=== PATIENT | female | born 1945 | race Caucasian/White ===

== ENCOUNTER 2024-12-12 06:09 | Day surgery (SDC) | payer MEDICARE, OTHER, SELFPAY ==
[2024-12-12] VITALS (7 sets, daily range): BP systolic 130–153; BP diastolic 67–86; BMI 26.5
[2024-12-12 14:12] LABS: Glucose - Point of Care 124 mg/dl (70-99)
[2024-12-12 17:43] LABS: Glucose - Point of Care 112 mg/dl (70-99)
[2024-12-12] MEDS: SUBLIMAZE 50 MCG IV (18:10)
== END 2024-12-12 19:03 | disposition home or self-care (01) ==
LOC: SDS 06:09
PROVIDERS: ATTENDING PHYSICIAN Internal Medicine Gastroenterology
DX: K22.2 Esophageal obstruction (principal); C15.9 Malignant neoplasm of esophagus, unspecified; D49.0 Neoplasm of unspecified behavior of digestive system
CPT/HCPCS: 43266; 76000; 82962; C1874

== ENCOUNTER 2024-12-18 08:02 | Outpatient (REF) | payer MEDICARE, OTHER, SELFPAY ==
[2024-12-18] VITALS (9 sets, daily range): BP systolic 87–148; BP diastolic 67–73
[2024-12-18 08:42] LABS: % Basophils 0.3 % (0-2); % Eosinophils 1.2 % (0-6); % Immature Granulocytes 0.2 % (0-0.5); % Lymphocytes 10.8 % (20.5-51.1); % Monocytes 9.7 % (1.7-9.3); % Neutrophils 77.8 % (42.2-75.2); Absolute Eosinophils 0.1 10^3/uL (0-0.7); Absolute Lymphocytes 1.1 10^3/uL (1.2-3.4); Absolute Neutrophils 8.1 10^3/uL (1.4-6.5); Hematocrit 43.6 % (37.0-47.0); Hemoglobin 15.8 g/dL (12.0-16.0); Mean Corp Hgb Conc. 36.2 g/dL (33.0-37.0); Mean Corpuscular Hgb 29.6 pg (27.0-31.0); Mean Corpuscular Volume 81.8 fL (81.0-99.0); Mean Platelet Volume 10.5 fL (7.4-10.4); Nucleated Red Blood Cells % 0 %; Platelet Count 293 10^3/uL (130-400); Red Blood Cell Count 5.33 10^6/uL (4.20-5.40); Red Cell Dist. Width 13.2 % (11.5-14.5); White Blood Cell Count 10.5 10^3/uL (4.8-10.8)
[2024-12-18 08:56] LABS: ALT (SGPT) 27 U/L (0-35); AST (SGOT) 21 U/L (14-36); Albumin 4.6 g/dl (3.5-5.0); Alkaline Phosphatase 83 U/L (38-126); Blood Urea Nitrogen 12 mg/dl (7-17); Calcium 10.4 mg/dl (8.4-10.2); Carbon Dioxide 25 mmol/L (22-30); Chloride 100 mmol/L (98-107); Glucose 159 mg/dl (70-99); Potassium 3.4 mmol/L (3.5-5.1); Sodium 137 mmol/L (135-145); Total Bilirubin 0.8 mg/dl (0.2-1.3); Total Protein 7.4 g/dl (6.3-8.2); eGFR > 60.00
[2024-12-18 08:57] LABS: INR 0.99; PT 13.4 Sec (11.4-14.6)
== END 2024-12-18 13:16 | disposition home or self-care (01) ==
LOC: RADI 08:02
PROVIDERS: ATTENDING PHYSICIAN Internal Medicine Hematology & Oncology; FAMILY PHYSICIAN Family Medicine
DX: C78.7 Secondary malignant neoplasm of liver and intrahepatic bile duct (principal); C15.3 Malignant neoplasm of upper third of esophagus; C50.412 Malignant neoplasm of upper-outer quadrant of left female breast; C50.911 Malignant neoplasm of unspecified site of right female breast; D47.2 Monoclonal gammopathy
CPT/HCPCS: 88307; 36415; 47000; 76942; 80053; 85025; 85610; 88313; 88333; 88341; 88342; 88360; 99152; 99153